=== PATIENT | female | born 1990 | race African-American/Black ===

== ENCOUNTER 2017-06-20 15:50 | Emergency (ER) | payer MEDICAID ==
[~2017-06-20] VITALS: Ht 162.6 cm; Wt 117.0 kg
[2017-06-20] MEDS ORDERED: ALBUTEROL (0.083%) 2.5MG/3ML NEB HHN STA (17:17)
[2017-06-20] MEDS ORDERED: ACETAMINOPHEN WITH CODEINE 300/30MG TABLET PO ONE (17:30)
[2017-06-20 20:13] VITALS: BP 120/83
== END 2017-06-20 20:13 | disposition home or self-care (01) ==
LOC: ER 16:03
DX: M79.1 Myalgia (principal); R05 Cough; M79.602 Pain in left arm; R07.89 Other chest pain; M54.9 Dorsalgia, unspecified
CPT/HCPCS: 71045; 81025; 94640; 99284; J7611; Z7610

== ENCOUNTER 2017-07-24 10:50 | Emergency (ER) | payer MEDICAID ==
[~2017-07-24] VITALS: Ht 165.1 cm; Wt 48.0 kg
[2017-07-24] MEDS ORDERED: IBUPROFEN 600MG TABLET PO ONE (12:45)
[2017-07-24 13:44] VITALS: BP 116/62
== END 2017-07-24 13:45 | disposition home or self-care (01) ==
LOC: ER 10:50
DX: H60.92 Unspecified otitis externa, left ear (principal); F12.10 Cannabis abuse, uncomplicated
CPT/HCPCS: 99283

== ENCOUNTER 2017-09-25 19:25 | Emergency (ER) | payer MEDICAID ==
[~2017-09-25] VITALS: Ht 165.1 cm; Wt 48.0 kg
[2017-09-25] MEDS ORDERED: KETOROLAC 60MG/2ML VIAL IM STA (22:52)
[2017-09-25] MEDS ORDERED: LIDOCAINE HCL/PF 1% 2ML VIAL INFIL ONE (23:00)
[2017-09-25] MEDS ORDERED: CEFTRIAXONE SODIUM 1 G/VIAL IM ONE (23:00)
[2017-09-25] MEDS ORDERED: TETANUS, DIPHTHERIA, PERTUSSIS VAC/PF 0.5ML (>7YR OLD) IM ONE (23:30)
[2017-09-25 23:47] VITALS: BP 110/78
== END 2017-09-25 23:47 | disposition home or self-care (01) ==
LOC: ER 21:29
DX: K04.7 Periapical abscess without sinus (principal); K02.9 Dental caries, unspecified; F12.10 Cannabis abuse, uncomplicated
CPT/HCPCS: 81025; 90471; 90715; 96372; 99284; J0696; J1885; J3490; Z7610

== ENCOUNTER 2017-09-29 09:43 | Emergency (ER) | payer MEDICAID ==
[~2017-09-29] VITALS: Ht 165.1 cm; Wt 47.0 kg
[2017-09-29 09:53] VITALS: BP 99/70
== END 2017-09-29 11:45 | disposition home or self-care (01) ==
LOC: ER 09:43
DX: Z48.00 Encounter for change or removal of nonsurgical wound dressing (principal); F12.90 Cannabis use, unspecified, uncomplicated
CPT/HCPCS: 99281

== ENCOUNTER 2018-06-10 08:20 | Emergency (ER) | payer MEDICAID ==
[~2018-06-10] VITALS: Ht 165.1 cm; Wt 52.0 kg
[2018-06-10] MEDS ORDERED: KETOROLAC 60MG/2ML VIAL IM ONE (12:00)
[2018-06-10] MEDS ORDERED: ONDANSETRON 4MG ODT PO ONE (12:00)
[2018-06-10 12:08] LABS: CLARITY URINE CLEAR (CLEAR); COLOR URINE YELLOW (YELLOW); KETONES URINE NEGATIVE (NEGATIVE); LEUKOCYTE ESTERASE URINE NEGATIVE (NEGATIVE); NITRITE URINE NEGATIVE (NEGATIVE); OCCULT BLOOD URINE NEGATIVE (NEGATIVE); PROTEIN URINE NEGATIVE (NEGATIVE)
[2018-06-10 13:16] VITALS: BP 118/80
== END 2018-06-10 13:17 | disposition home or self-care (01) ==
LOC: ER 08:20
DX: R10.0 Acute abdomen (principal); R11.2 Nausea with vomiting, unspecified; R19.7 Diarrhea, unspecified; K04.7 Periapical abscess without sinus; F12.90 Cannabis use, unspecified, uncomplicated; R03.0 Elevated blood-pressure reading, without diagnosis of hypertension
CPT/HCPCS: 81003; 81025; 96372; 99283; J1885; Q0162

== ENCOUNTER 2019-12-04 10:31 | Emergency (ER) | payer SELFPAY ==
[~2019-12-04] VITALS: Ht 162.6 cm; Wt 53.0 kg
[2019-12-04] MEDS ORDERED: DEXAMETHASONE 4MG/ML 1ML VIAL IM ONE ×2 (11:45→12:15)
[2019-12-04] MEDS ORDERED: CEFTRIAXONE SODIUM 1 G/VIAL IM ONE ×2 (11:45→12:15)
[2019-12-04] MEDS ORDERED: LIDOCAINE HCL/PF 1% 10 MG/ML 5ML VIAL IJ ONE (11:45)
[2019-12-04] MEDS ORDERED: LIDOCAINE HCL 1% 20ML VIAL (Pyxis) INJ INFIL ONE (12:15)
[2019-12-04] MEDS ORDERED: IBUPROFEN 600MG TABLET PO ONE (13:00)
[2019-12-04 14:03] VITALS: BP 109/61
== END 2019-12-04 14:05 | disposition home or self-care (01) ==
LOC: ER 10:31
DX: J03.90 Acute tonsillitis, unspecified (principal); F12.10 Cannabis abuse, uncomplicated
CPT/HCPCS: 81025; 87070; 87430; 96372; 99284; J0696; J1100; J3490

== ENCOUNTER 2019-12-08 11:35 | Emergency (ER) | payer MEDICAID ==
[~2019-12-08] VITALS: Ht 162.6 cm; Wt 53.0 kg
[2019-12-08] MEDS ORDERED: DEXAMETHASONE 10 MG/ML VIAL IM ONE (12:45)
[2019-12-08 13:04] VITALS: BP 103/68
== END 2019-12-08 13:06 | disposition home or self-care (01) ==
LOC: ER 11:57
DX: J03.90 Acute tonsillitis, unspecified (principal); F12.90 Cannabis use, unspecified, uncomplicated
CPT/HCPCS: 81025; 96372; 99283; J1100

== ENCOUNTER 2021-09-26 16:59 | Emergency (ER) | payer MEDICAID ==
[~2021-09-26] VITALS: Ht 162.6 cm; Wt 57.0 kg
[2021-09-26 17:19] VITALS: BP 125/88
[2021-09-26] MEDS ORDERED: ONDANSETRON HCL 4MG/2ML INJ IV STA (18:34)
[2021-09-26] MEDS ORDERED: FAMOTIDINE 20MG/2ML VIAL IV STA (18:34)
[2021-09-26] MEDS ORDERED: SODIUM CHLORIDE 0.9% 1,000 ML IV ONE (18:45)
[2021-09-26 18:53] LABS: CLARITY URINE CLOUDY (CLEAR); COLOR URINE DARK YELLOW (YELLOW); KETONES URINE 1+ (NEGATIVE); LEUKOCYTE ESTERASE URINE TRACE (NEGATIVE); NITRITE URINE NEGATIVE (NEGATIVE); OCCULT BLOOD URINE NEGATIVE (NEGATIVE); PROTEIN URINE TRACE (NEGATIVE); SPECIFIC GRAVITY URINE 1.025 (1.005-1.030)
[2021-09-26 18:56] LABS: BASOPHILS % 1.3 % (0.0-2.0); EOSINOPHILS % 0.5 % (0.0-5.0); HEMATOCRIT. 43.6 % (36.0-48.0); HEMOGLOBIN. 14.4 g/dL (12.0-16.0); LYMPHOCYTES % 23.1 % (20.0-50.0); MEAN CORPUSCULAR HEMOGLOBIN 26.9 pg (28.0-32.0); MEAN CORPUSCULAR VOLUME 81.2 fL (81.0-99.0); MEAN PLATELET VOLUME 8.1 fl (7.4-10.4); MONOCYTES % 5.2 % (2.0-8.0); NEUTROPHILS % 69.9 % (40.0-76.0); PLATELET 253 x1000/uL (130-400); RED BLOOD CELL COUNT 5.37 mill/uL (4.2-5.4); RED CELL DISTRIBUTION WIDTH 13.7 % (11.6-14.6)
[2021-09-26 19:04] LABS: CHLORIDE 104 mEq/L (98-107)
[2021-09-26 19:23] LABS: HCG SCREEN NEGATIVE
[2021-09-26] MEDS ORDERED: ONDA4TAB11 PO (22:31)
[2021-09-26] MEDS ORDERED: FAMO-135 MT (22:31)
== END 2021-09-26 22:57 | disposition home or self-care (01) ==
LOC: ER 16:59
DX: R10.13 Epigastric pain (principal); E86.0 Dehydration; R11.2 Nausea with vomiting, unspecified; E11.9 Type 2 diabetes mellitus without complications; F12.90 Cannabis use, unspecified, uncomplicated
CPT/HCPCS: 36415; 74176; 80053; 81003; 82962; 83605; 83690; 84703; 85025; 93005; 96361; 96374; 96375; 99285; J2405; J3490; J7030

== ENCOUNTER 2021-10-05 06:40 | Emergency (ER) | payer MEDICAID ==
[~2021-10-05] VITALS: Ht 162.6 cm; Wt 54.0 kg
[~2021-10-05 06:40] MED LIST: FAMO-135 MT; ONDA4TAB11 PO
[2021-10-05 07:27] VITALS: BP 106/64
[2021-10-05] MEDS ORDERED: LIDOCAINE HCL/PF 1% 10 MG/ML 5ML VIAL INFIL ONE (08:30)
[2021-10-05] MEDS ORDERED: CEPH500T PO (08:56)
[2021-10-05] MEDS ORDERED: SULF1TAB48 PO (08:56)
== END 2021-10-05 09:14 | disposition home or self-care (01) ==
LOC: ER 06:40
DX: L02.415 Cutaneous abscess of right lower limb (principal); F12.10 Cannabis abuse, uncomplicated
CPT/HCPCS: 10060; 76604; 99284; J3490